=== PATIENT | female | born 1950 | race Asian ===

== ENCOUNTER 2021-01-24 21:57 | Emergency (ER) | payer OTHER ==
[~2021-01-24] VITALS: Ht 157.5 cm; Wt 65.8 kg
--- NOTE | 2021-01-24 22:06 | NUR ---
PT AAOX4. BIBSELF, STATES SHE FELT DIAPHORETIC AT HOME, CHECKED BS AT HOME: 410.. UPON ASSESSMENT PT BG 310, LINE ESTABLISHED RH 20G, BLOOD WORK COLLECTED, SENT TO LAB.
[2021-01-24] MEDS ORDERED: IV NS 0.9% 1,000 ML BAG IV ONE (22:30)
[2021-01-24 22:47] LABS: BILIRUBIN,URINE NEGATIVE (NEGATIVE); COLOR,URINE YELLOW (YELLOW); LEUKOCYTE ESTERASE ,URINE NEGATIVE (NEGATIVE); NITRITE, URINE NEGATIVE (NEGATIVE); PROTEIN,URINE NEGATIVE (NEGATIVE); UGLUCOSE >=1000 mg/dL (NEGATIVE); UROBILINOGEN,URINE 0.2 EU/dL (0.2)
[2021-01-24 23:17] LABS: RBC,URINE 0-2 /HPF (0-2)
[2021-01-24 23:18] LABS: BASOPHILS % (AUTO) 0.2 % (0.0-2.0); EOSINOPHILS % (AUTO) 0.1 % (0.0-6.0); HEMATOCRIT 41 % (33-45); HEMOGLOBIN 13.4 g/dL (11.5-14.8); LYMPHOCYTES # (AUTO) 1.2 /CMM (0.8-4.8); LYMPHOCYTES % (AUTO) 12.6 % (20.0-44.0); MEAN CORPUSCULAR HGB CONC 33 g/dl (31.0-36.0); MEAN CORPUSCULAR VOLUME 83 fL (82-100); MONOCYTES # (AUTO) 0.2 /CMM (0.1-1.30); MONOCYTES % (AUTO) 1.8 % (2.0-12.0); NEUTROPHILS # (AUTO) 8.4 /CMM (1.8-8.9); NEUTROPHILS % (AUTO) 85.3 % (43.0-81.0); PLATELET COUNT (AUTO) 291 /CMM (150-450); RED BLOOD CELL COUNT(AUTO) 4.89 MIL/uL (4.0-5.2); WHITE BLOOD COUNT (AUTO) 9.8 K/uL (4.3-11.0)
[2021-01-24 23:19] LABS: BACTERIA,URINE Few /HPF (None Seen); SQUAMOUS EPITHELIAL CELL,UR Moderate /HPF (None Seen)
[2021-01-24 23:32] LABS: CREATININE 1.1 mg/dL (0.6-1.3); POTASSIUM 4.8 mmol/L (3.5-5.1)
[2021-01-24 23:38] LABS: ALBUMIN 3.7 g/dL (3.4-5.0); BILIRUBIN,DIRECT 0.1 mg/dL (0.0-0.2); BILIRUBIN,TOTAL 0.6 mg/dL (0.2-1.0); TOTAL PROTEIN, SERUM 7.6 g/dL (6.4-8.2)
--- NOTE | 2021-01-24 23:43 | NUR ---
BG 287, ER MD AWARE
[2021-01-25 00:16] VITALS: BP 141/72
--- NOTE | 2021-01-25 00:16 | NUR ---
Patient discharged to home in stable condition. Written and verbal after care instructions given. Patient verbalizes understanding of instruction. Pt ambulated out of ED. vss.
== END 2021-01-25 00:16 | disposition home or self-care (01) ==
LOC: ER 22:03
DX: E11.65 Type 2 diabetes mellitus with hyperglycemia (principal); I10 Essential (primary) hypertension; Z88.0 Allergy status to penicillin
CPT/HCPCS: 36415; 71045; 80048; 80076; 81001; 82962 ×3; 85025; 93005; 96360; 99285; J7030

== ENCOUNTER 2023-10-08 10:01 | Emergency (ER) | payer OTHER ==
[~2023-10-08] VITALS: Ht 157.5 cm; Wt 61.2 kg
[2023-10-08] MEDS ORDERED: ACETAMINOPHEN ES 500 MG TABLET ONE (11:01)
[2023-10-08] MEDS: IV NS 0.9% 1,000 ML BAG IV ONE (11:05)
[2023-10-08] MEDS: ACETAMINOPHEN ES 500 MG TABLET PO ONE (11:05)
[2023-10-08 11:24] LABS: BASOPHILS # (AUTO) 0.1 K/uL (0.0-0.2); BASOPHILS % (AUTO) 0.4 % (0.0-2.0); HEMATOCRIT 36 % (33-45); HEMOGLOBIN 12.1 g/dL (11.5-14.8); LYMPHOCYTES # (AUTO) 1.2 K/uL (0.8-4.8); LYMPHOCYTES % (AUTO) 8.8 % (20.0-44.0); MEAN CORPUSCULAR HEMOGLOBIN 26 PG (26.0-33.0); MEAN CORPUSCULAR HGB CONC 34 g/dl (31.0-36.0); MEAN CORPUSCULAR VOLUME 79 fL (82-100); MONOCYTES % (AUTO) 7.2 % (2.0-12.0); NEUTROPHILS # (AUTO) 11.4 K/uL (1.8-8.9); NEUTROPHILS % (AUTO) 83.6 % (43.0-81.0); PLATELET COUNT (AUTO) 232 K/uL (150-450); RED BLOOD CELL COUNT(AUTO) 4.56 MIL/uL (4.0-5.2); RED CELL DISTRIBUTION WIDTH 16.5 % (11.5-15.0); WHITE BLOOD COUNT (AUTO) 13.6 K/uL (4.3-11.0)
[2023-10-08 11:33] LABS: CALCIUM, SERUM 8.7 mg/dL (8.5-10.1); CARBON DIOXIDE 24 mmol/L (21-32); CHLORIDE 98 mmol/L (98-107); CREATININE 1.4 mg/dL (0.6-1.3); GLUCOSE 191 mg/dL (74-106); POTASSIUM 3.7 mmol/L (3.5-5.1); SODIUM SERUM 130 mmol/L (136-145); UREA NITROGEN, BLOOD 22 mg/dL (7-18)
[2023-10-08 11:39] LABS: ALANINE AMINOTRANSFERASE 26 U/L (12-78); ALBUMIN 3.7 g/dL (3.4-5.0); ALKALINE PHOSPHATASE 97 U/L (46-116); ASPARTATE AMINOTRANSFERASE 31 U/L (15-37); BILIRUBIN,DIRECT 0.3 mg/dL (0.0-0.2); BILIRUBIN,TOTAL 0.8 mg/dL (0.2-1.0); TOTAL PROTEIN, SERUM 8.2 g/dL (6.4-8.2)
[2023-10-08 11:44] LABS: LACTIC ACID 1.8 mmol/L (0.4-2.0)
[2023-10-08 13:11] LABS: APPEARANCE,URINE CLEAR (CLEAR); BILIRUBIN,URINE NEGATIVE (NEGATIVE); BLOOD, URINE 2+ Ery/uL (NEGATIVE); COLOR,URINE YELLOW (YELLOW); KETONES,URINE NEGATIVE (NEGATIVE); LEUKOCYTE ESTERASE ,URINE NEGATIVE (NEGATIVE); NITRITE, URINE NEGATIVE (NEGATIVE); PROTEIN,URINE 1+ mg/dl (NEGATIVE); UGLUCOSE 3+ mg/dL (NEGATIVE); UROBILINOGEN,URINE 0.2 EU/dL (0.2)
[2023-10-08 13:29] LABS: ADD URINE CULTURE NO; BACTERIA,URINE Few /HPF (None Seen); SQUAMOUS EPITHELIAL CELL,UR Moderate /HPF (None Seen); WBC,URINE 0-2 /HPF (0-3)
[2023-10-08] MEDS: IV NS 0.9% 1,000 ML IV ONE (13:40)
[2023-10-08 15:55] VITALS: BP 112/60; TEMP 100.2; O2SAT 100
== END 2023-10-08 15:56 | disposition home or self-care (01) ==
LOC: ER 10:28
DX: U07.1 COVID-19 (principal); R50.9 Fever, unspecified; I10 Essential (primary) hypertension; E11.9 Type 2 diabetes mellitus without complications; Z88.0 Allergy status to penicillin
CPT/HCPCS: 99285; 96360; 71045; 96361; 87426; 93005; 84145; 85025; 80048; 87040 ×2; 87086; 83605; 80076; 81001; 36415; J7030 ×2; C9803